=== PATIENT | female | born 1955 | race Caucasian/White ===

== ENCOUNTER 2018-01-31 17:39 | Emergency (ER) | payer BC ==
[2018-01-31 18:05] VITALS: BP 156/84
--- NOTE | 2018-01-31 18:05 | RAD ---
INDICATION: 6 weeks of atraumatic right shoulder pain COMPARISON: None. TECHNIQUE: 4 views of the right shoulder were obtained. FINDINGS: The adequately corticated bones are in normal alignment. Degenerative changes at the acromioclavicular joint include marginal osteophyte formation. Along the inferior margin of the glenohumeral joint there is a small focus of well-corticated calcium without an identified donor site. A chronic process is favored. No definite fracture, dislocation or focal bony abnormality is seen. IMPRESSION: DEGENERATIVE CHANGES DESCRIBED ABOVE WITHOUT RADIOGRAPHICALLY APPARENT FRACTURE OR DISLOCATION. If the patient's symptoms persist, follow-up imaging is recommended.
--- NOTE | 2018-01-31 19:32 | UC ---
Upper Extremity HPI - HPI Summary HPI Summary: Patient is a 62-year-old female present to the with complaint of cervical anterior neck tenderness radiating into the right posterior shoulder into the scapula and down into the arm. 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 She endorses 8/10 pain at the end of the day and states she feels the area is very stiff. Pain with movement, better with rest. She has not tried anything [id number] for relief. She has not been icing her using heat. - History of Current Complaint Chief Complaint: UCUpperExtremity Stated Complaint: SHOULDER PAIN Time Seen by Provider: 01/31/18 18:15 Hx Obtained From: Patient Hx Last Menstrual Period: na ?: No Onset/Duration: Sudden Onset Severity Initially: Moderate Severity Currently: Moderate Pain Intensity: 2 Pain Scale Used: 0-10 Numeric Location Of Pain: Is Discrete @ - right deltoid and cervical lateral neck tenderness radiating to the scapular region with burning and tightness sensation Character: Aching, Burning Aggravating Factor(s): Abduction Alleviating Factor(s): Nothing Associated Signs And Symptoms: Positive: Negative Related History: Dominant Hand Right - Risk Factors Non-Orthopedic Risk Factor: Negative DVT Risk Factors: Negative Septic Arthritis Risk Factor: Negative Compartment Syndrome Risk Factors: Pain - Allergies/Home Medications Allergies/Adverse Reactions: Allergies Allergy/AdvReac Type Severity Reaction Status Date / Time amoxicillin [From Augmentin] Allergy Intermediate Nausea Verified 01/31/18 18:05 clavulanic acid Allergy Intermediate Nausea Verified 01/31/18 18:05 [From Augmentin] clarithromycin [From Biaxin] Allergy Nausea Verified 01/31/18 18:05 Home Medications: Home Medications Rosuvastatin Calcium [Crestor] 20 mg PO DAILY WITH MEAL 01/31/18 [History Confirmed 01/31/18] PMH/Surg Hx/FS Hx/Imm Hx Previously Healthy: Yes - Surgical History Surgical History: Yes Surgery Procedure, Year, and Place: BACK SURGERY, 2000, [facility]. GALLBLADDER , , [facility]. C SECTION, 1982, 1985 - Family History Known Family History: Positive: Unknown - Social History Occupation: Employed Full-time Lives: With Family Alcohol Use: Occasionally Alcohol Amount: 2 PER YEAR Substance Use Type: None Smoking Status (MU): Former Smoker When Did the Patient Quit Smoking/Using Tobacco: 55 yrs ago Review of Systems Constitutional: Negative Skin: Negative Respiratory: Negative Cardiovascular: Negative Motor: Negative Musculoskeletal: Arthralgia Neurological: Negative Psychological: Negative Is Patient Immunocompromised?: No All Other Systems Reviewed And Are Negative: Yes Physical Exam Triage Information Reviewed: Yes Appearance: Well-Appearing, No Pain Distress, Well-Nourished Vital Signs: Initial Vital Signs Temp 98.1 F 01/31/18 17:58 Pulse 66 01/31/18 17:58 Resp 18 01/31/18 17:58 BP 156/84 01/31/18 17:58 Pulse Ox 98 01/31/18 17:58 Vital Signs Reviewed: Yes Eye Exam: Normal Neck exam: Normal Neck: Positive: Supple, No Lymphadenopathy Respiratory Exam: Normal Respiratory: Positive: Chest non-tender, Lungs clear Cardiovascular Exam: Normal Cardiovascular: Positive: RRR Musculoskeletal: Positive: ROM Limited @ - External rotation and abduction past 90 of the right shoulder Neurological Exam: Normal Psychological: Positive: Normal Response To Family Skin Exam: Normal Upper Extremity Course/Dx - Course Course Of Treatment: Patient is evaluated for right rotator cuff tendinitis versus shoulder impingement syndrome secondary to overuse. This is likely a acute tendinitis and will improve with conservative treatment. Pain most notably located over the sternocleidomastoid radiating into the right posterior scapular area and right deltoid. Worsening pain with abduction, better with abduction and internal rotation. Worse with external rotation. She feels the area is very stiff. Pulses +2 intact bilaterally. Denies any numbness or tingling. Neer test positive. Empty can test positive. - Differential Dx/Diagnosis Differential Diagnosis/HQI/PQRI: Strain, Sprain, Other - Tendinitis, shoulder impingement syndrome, overuse injury, shoulder strain Provider Diagnoses: Overuse injury right shoulder Discharge - Sign-Out/Discharge Documenting (check all that apply): Patient Departure - Discharge Plan Condition: Stable Disposition: HOME Patient Education Materials: Rotator Cuff Tendinitis (ED) Forms: *Work Release Referrals: Yu Oh NP [Primary Care Provider] - Additional Instructions: Do pendulum shoulder exercises to help prevent frozen shoulder Ibuprofen 600 mg 3 times daily 5 days Ice to the area 3 times daily Tomorrow you may also begin using moist heat intermittently just prior to your shoulder exercises Massages will be very important - Billing Disposition and Condition Condition: STABLE Disposition: Home
== END 2018-01-31 18:45 | disposition home or self-care (01) ==
LOC: UCEAST 17:39
DX: Z87.891 Personal history of nicotine dependence (principal); M70.821 Other soft tissue disorders related to use, overuse and pressure, right upper arm; Y93.89 Activity, other specified; Y92.9 Unspecified place or not applicable; Z88.0 Allergy status to penicillin; Z88.1 Allergy status to other antibiotic agents; Z88.8 Allergy status to other drugs, medicaments and biological substances
CPT/HCPCS: 99201; G0463

== ENCOUNTER 2018-03-31 12:46 | Emergency (ER) | payer BC ==
--- NOTE | 2018-03-31 15:17 | RAD ---
HISTORY: PAIN right knee pain COMPARISONS: None VIEWS: 4 , Frontal, lateral, axial, and oblique views of the right knee FINDINGS: BONE DENSITY: Normal. BONES: The patient is status post arthroplasty of the medial compartment of the right knee. There is no appreciable hardware failure or osteolysis. JOINTS: The patient is status post medial compartment arthroplasty. There is moderate patellofemoral osteoporosis with mild lateral compartment osteoarthritis. There is no suprapatellar joint effusion or lipohemarthrosis. ALIGNMENT: There is no dislocation. SOFT TISSUES: Unremarkable. OTHER FINDINGS: None. IMPRESSION: 1. OSTEOARTHRITIS. 2. STATUS POST MEDIAL COMPARTMENT ARTHROPLASTY. 3. NO ACUTE OSSEOUS INJURY. IF SYMPTOMS PERSIST, RECOMMEND REPEAT IMAGING
[2018-03-31 15:43] VITALS: BP 148/72
--- NOTE | 2018-03-31 15:44 | UC ---
Knee Pain HPI - HPI Summary HPI Summary: 62 y/o female with h/o partial knee replacement x 1 year ago presents with knee pain x several days. taking motrin, no hlep. Feels similar to IT band pain she had post-op, no swelling, warmth, joint swelling. no fever, chills. no follow up after surgery, done by Dr. Rafat Augustin near [facility]. pain located around patella, shooting up outside of leg, and medical to patella - History of Current Complaint Chief Complaint: UCLowerExtremity Stated Complaint: KNEE PAIN, AND LEG PAIN Time Seen by Provider: 03/31/18 14:44 Hx Obtained From: Patient Hx Last Menstrual Period: na ?: No Onset/Duration: Sudden Onset, Lasting Days Severity Initially: Moderate Severity Currently: Moderate Pain Intensity: 10 Pain Scale Used: 0-10 Numeric - Allergies/Home Medications Allergies/Adverse Reactions: Allergies Allergy/AdvReac Type Severity Reaction Status Date / Time amoxicillin [From Augmentin] Allergy Intermediate Nausea Verified 03/31/18 13:41 clavulanic acid Allergy Intermediate Nausea Verified 03/31/18 13:41 [From Augmentin] clarithromycin [From Biaxin] Allergy Nausea Verified 03/31/18 13:41 Home Medications: Home Medications Ibuprofen 800 mg PO 03/31/18 [History] PMH/Surg Hx/FS Hx/Imm Hx Previously Healthy: Yes - prior partial knee replacement - Surgical History Surgical History: Yes Surgery Procedure, Year, and Place: BACK SURGERY, 2000, [facility]. [facility] , , [facility]. C SECTION, 1982, 1985 - Family History Known Family History: Positive: Unknown - Social History Alcohol Use: Occasionally Alcohol Amount: 2 PER YEAR Substance Use Type: None Smoking Status (MU): Former Smoker When Did the Patient Quit Smoking/Using Tobacco: 55 yrs ago Review of Systems Constitutional: Negative Skin: Negative Musculoskeletal: Arthralgia, Myalgia Neurological: Negative Psychological: Negative Is Patient Immunocompromised?: No All Other Systems Reviewed And Are Negative: Yes Physical Exam Triage Information Reviewed: Yes Appearance: Well-Appearing, No Pain Distress, Well-Nourished Vital Signs: Initial Vital Signs Temp 98.0 F 03/31/18 13:36 Pulse 77 03/31/18 13:36 Resp 18 03/31/18 13:36 BP 154/75 03/31/18 13:36 Pulse Ox 97 03/31/18 13:36 Vital Signs Reviewed: Yes Musculoskeletal: Positive: Strength Intact, ROM Intact - knee, ankle R side, No Edema, Other: - TTP over medial tib plat, pes anserine, and over IT band. neg patella grind, no instability. Neurological Exam: Normal Psychological Exam: Normal Skin Exam: Normal Skin: Positive: Other - no erythema, warmth Knee Pain Course/Dx - Course Course Of Treatment: xray negative, PT scrip tgiven, follow up with ROLLY olivarez - Differential Dx/Diagnosis Differential Diagnosis/HQI/PQRI: Cellulitis, Dislocation, DVT, Fracture (Closed) Provider Diagnoses: tendonitis Discharge - Sign-Out/Discharge Documenting (check all that apply): Patient Departure All imaging exams completed and their final reports reviewed: Yes - Discharge Plan Condition: Good Disposition: HOME Prescriptions: Diclofenac 1% GEL (NF) [Voltaren 1% GEL (NF)] 1 applic TOPICAL BID PRN #1 tube PRN Reason: Pain Patient Education Materials: Tendinitis (ED) Forms: *Work Release Referrals: Magdalena ZAVALETA,Ej Duff [Medical Doctor] - Miles Hogue MD [Medical Doctor] - Yu Oh NP [Primary Care Provider] - Additional Instructions: - Do exercises - Follow up with orthopedics for yearl evlauation or if no improvement - PT script given - motrin/ tylenol as needed for pain - Work note given - Rest, ice, elevation - Billing Disposition and Condition Condition: GOOD Disposition: Home
== END 2018-03-31 15:43 | disposition home or self-care (01) ==
LOC: UCEAST 12:46
DX: M76.51 Patellar tendinitis, right knee (principal); M17.11 Unilateral primary osteoarthritis, right knee; Z96.651 Presence of right artificial knee joint; Z88.1 Allergy status to other antibiotic agents; Z88.0 Allergy status to penicillin; Z87.891 Personal history of nicotine dependence
CPT/HCPCS: 99212; G0463

== ENCOUNTER 2018-04-21 09:46 | Emergency (ER) | payer BC ==
--- NOTE | 2018-04-21 10:00 | UC ---
Knee Pain HPI - History of Current Complaint Stated Complaint: KNEE INJURY Time Seen by Provider: 04/21/18 10:00 Hx Last Menstrual Period: na - Allergies/Home Medications Allergies/Adverse Reactions: Allergies Allergy/AdvReac Type Severity Reaction Status Date / Time amoxicillin [From Augmentin] Allergy Intermediate Nausea Verified 03/31/18 13:41 clavulanic acid Allergy Intermediate Nausea Verified 03/31/18 13:41 [From Augmentin] clarithromycin [From Biaxin] Allergy Nausea Verified 03/31/18 13:41 PMH/Surg Hx/FS Hx/Imm Hx - Surgical History Surgical History: Yes Surgery Procedure, Year, and Place: BACK SURGERY, 2000, [facility]. [facility]ALL[facility]AD[facility] , , [facility]. C SECTION, 1982, 1985 - Family History Known Family History: Positive: Unknown - Social History Alcohol Use: Occasionally Alcohol Amount: 2 PER YEAR Substance Use Type: None Smoking Status (MU): Former Smoker When Did the Patient Quit Smoking/Using Tobacco: 55 yrs ago Discharge - Discharge Plan Referrals: Yu Oh NP [Primary Care Provider] -
[2018-04-21] MEDS ORDERED: Ketorolac INJ* 60 MG/2 ML VIAL IM ONE (10:15)
[2018-04-21] MEDS ORDERED: HYDROcodone/ACETAMIN 5-325 MG* 1 TAB PO ONE (10:15)
--- NOTE | 2018-04-21 10:17 | UC ---
Knee Pain HPI - HPI Summary HPI Summary: This patient is a 62 year old F presenting to [facility] accompanied by another woman with a chief complaint of right knee pain medial to the patella. Pt states she was massaging her knee last night when she irritated the tendon. The patient rates the pain 8/10 in severity. Symptoms aggravated by bending at the knee. Patient denies fever, redness, and swelling. She is able to walk currently. Pt states she was seen in the a few weeks ago for the same sx but states it has returned. She states it did resolve after the last visiting. Hx of bilateral partial knee replacement. NKDA. - History of Current Complaint Stated Complaint: KNEE INJURY Time Seen by Provider: 04/21/18 10:00 Hx Obtained From: Patient Hx Last Menstrual Period: na Onset/Duration: Lasting Days, Still Present Severity Initially: Moderate Severity Currently: Moderate Pain Scale Used: 0-10 Numeric Alleviating Factor(s): Rest, OTC Meds Associated Signs And Symptoms: Negative: Fever, Tingling Able to Bear Weight: Yes - Allergies/Home Medications Allergies/Adverse Reactions: Allergies Allergy/AdvReac Type Severity Reaction Status Date / Time amoxicillin [From Augmentin] Allergy Intermediate Nausea Verified 04/21/18 10:17 clavulanic acid Allergy Intermediate Nausea Verified 04/21/18 10:17 [From Augmentin] clarithromycin [From Biaxin] Allergy Nausea Verified 04/21/18 10:17 PMH/Surg Hx/FS Hx/Imm Hx - Additional Past Medical History Additional PMH: Hep A Cardiovascular History: Cardiac Disease, Hypertension - Surgical History Surgical History: Yes Surgery Procedure, Year, and Place: BACK SURGERY, 2000, [facility]. [place] , , [facility]. C SECTION, 1982, 1985 - Family History Known Family History: Positive: Cardiac Disease, Hypertension - Social History Alcohol Use: Occasionally Alcohol Amount: 2 PER YEAR Substance Use Type: None Smoking Status (MU): Former Smoker When Did the Patient Quit Smoking/Using Tobacco: 55 yrs ago Review of Systems Constitutional: Negative - fever Skin: Negative - redness Musculoskeletal: Other: - Right knee pain All Other Systems Reviewed And Are Negative: Yes Physical Exam - Summary Physical Exam Summary: VITAL SIGNS: Reviewed. GENERAL: Patient is a well-developed and nourished female who is lying comfortable in the stretcher. Patient is not in any acute respiratory distress. HEAD AND FACE: Normocephalic EYES: PERRLA, EOMI x 2. EARS: Hearing grossly intact. MOUTH: Oropharynx within normal limits. NECK: Supple, trachea is midline, no adenopathy, no JVD, no carotid bruit. CHEST: Symmetric, no tenderness at palpation LUNGS: Clear to auscultation bilaterally. No wheezing or crackles. CVS: Regular rate and rhythm, S1 and S2 present, no murmurs or gallops appreciated. ABDOMEN: Soft, non-tender. Bowel sounds are normal. No abdominal abnormal pulsations. EXTREMITIES: Full ROM in all major joints in the right knee there is no deformity, no signs of infection, no erythema, and there is full ROM in the knee. She is TTP along the medial aspect of knee. NEURO: Alert and oriented x 3. No acute neurological deficits. Speech is normal and follows commands. SKIN: Dry and warm Triage Information Reviewed: Yes Vital Signs Reviewed: Yes Knee Pain Course/Dx - Course Course Of Treatment: BP noted and patient was advised to f/u with her PCP. This patient is a 62-year-old female who presents to the urgent care with chief complaint of right knee pain. Patient reports that she was massage the knee 2 days ago and since that the patient is having pain. She denies that she irritated tendon. She reports that yesterday she was not able to ambulate however today she is able to put pressure and walk however she has pain. Physical exam shows no signs of infection, no deformity no hematomas and she has full range of motion. Since there is no signs of trauma or heavy lifting there is no need for another x-ray today. The patient was given Toradol and [place] for the pain. Patient will follow-up in orthopedics since the patient has history of knee replacement. She was strongly recommended to return to the urgent care or go to the emergency department if she develops any fever, redness , swelling or any other complaint since we need to rule out an infected joint. She understands and agrees. She reports that she has similar symptoms 2 weeks ago however after taking ibuprofen the symptoms improved. Patient is hemodynamically stable alert and oriented 3. - Differential Dx/Diagnosis Provider Diagnoses: Knee pain. HTN Discharge - Sign-Out/Discharge Documenting (check all that apply): Patient Departure All imaging exams completed and their final reports reviewed: No Studies - Discharge Plan Condition: Improved Disposition: HOME Prescriptions: Cyclobenzaprine TAB* [Flexeril 10 MG TAB*] 10 mg PO TID PRN #12 tab PRN Reason: Spasms HYDROcodone/ACETAMIN 5-325 MG* [[place] 5-325 TAB*] 1 tab PO Q6H PRN #12 tab MDD 4 PRN Reason: Pain Patient Education Materials: Knee Pain (ED) Referrals: Miles Hogue MD [Medical Doctor] - Yu Oh NP [Primary Care Provider] - Additional Instructions: Take medications as instructed and adhere to plan Take Acetaminophen or ibuprofen for pain or fever Increase your fluid intake Return to the or go to the emergency department if symptoms worsen Follow-up with primary care physician in next 2-3 days - Billing Disposition and Condition Condition: IMPROVED Disposition: Home - Attestation Statements Document Initiated by Tommie: Yes Documenting Scribe: Charan Mcdonald Provider For Whom Tommie is Documenting (Include Credential): Bharat Hook MD Scribe Attestation: Charan Au scribed for Bharat Hook MD on 04/21/18 at 1204. Scribe Documentation Reviewed: Yes Provider Attestation: The documentation as recorded by the Charan beck accurately reflects the service I personally performed and the decisions made by , Bharat Hook MD
[2018-04-21 10:18] VITALS: BP 145/77
== END 2018-04-21 10:34 | disposition home or self-care (01) ==
LOC: UCEAST 09:46
DX: M25.561 Pain in right knee (principal); I10 Essential (primary) hypertension; Z88.0 Allergy status to penicillin; Z88.1 Allergy status to other antibiotic agents; Z87.891 Personal history of nicotine dependence
CPT/HCPCS: 96372; 99212; G0463; J1885